=== PATIENT | male | born 1995 | race Caucasian/White ===

== ENCOUNTER 2017-11-28 13:28 | Emergency (ER) | payer OTHER ==
[2017-11-28 13:36] VITALS: RESP 18
[2017-11-28] MEDS ORDERED: ONDANSETRON 4 MG/2 ML VIAL ONE (13:47)
[2017-11-28] MEDS ORDERED: ONDANSETRON 4 MG/2 ML VIAL IVP ONE (13:49)
[2017-11-28] MEDS ORDERED: NS 1,000 ML IV ONE ×2 (13:49)
--- NOTE | 2017-11-28 13:51 | EDPHY ---
H & P Time Seen by Provider: 11/28/17 13:36 HPI/ROS: CHIEF COMPLAINT: Nausea and vomiting HISTORY OF PRESENT ILLNESS: For 5 drinks last night, no other recent illnesses except for a bit of a nonproductive cough for 3 days. At 8:00 a.m. And multiple episodes of nausea and vomiting associated with some mild epigastric discomfort. No diarrhea, no hematemesis or coffee-ground emesis, abdominal symptoms are actually better now. Worse with any oral intake. REVIEW OF SYSTEMS: Eye: no change in vision ENT: Mild sore throat Cardiac: no chest pain or syncope Pulmonary: Not short of breath Abdomen: HPI Musculoskeletal: no back pain Skin: no rash Neuro: no headache Constitutional: no fever : no urinary symptoms A comprehensive 10 point review of systems is otherwise negative aside from elements mentioned in the history of present illness. PAST MEDICAL HISTORY: Hernia repair otherwise negative Social history: Alcohol last night General Appearance: Alert and conversant, cooperative. Eyes: No scleral icterus. ENT, Mouth: Slightly dry mucous membranes Respiratory: Normal respiratory effort, breath sounds equal, lungs are clear to auscultation. Cardiovascular: Regular rate and rhythm. Gastrointestinal: Abdomen is soft and non tender. No epigastric or right upper quadrant tenderness, negative Cox's. Neurological: Alert, face symmetric, normal motor and sensory in extremities. Skin: Warm and dry, no rashes. Musculoskeletal: No peripheral edema. Psychiatric: Not agitated. Emergency Department course/MDM: Presents with vomiting, mild dehydration Does not have evidence of surgical exam, low suspicion for pancreatitis or hepatitis. Normal saline 2 L IV and Zofran 4 mg IV. 1449: Still has some epigastric pain, LFTs and lipase ordered. 1519: Labs discussed, feeling better, stable for discharge. Smoking Status: Current some day smoker Constitutional: Initial Vital Signs Temperature (C) 36.8 C 11/28/17 13:34 Heart Rate 92 11/28/17 13:34 Respiratory Rate 18 11/28/17 13:34 Blood Pressure 119/79 11/28/17 13:34 O2 Sat (%) 96 11/28/17 13:34 O2 Delivery Mode Room Air Allergies/Adverse Reactions: No Known Allergies Allergy (Verified 11/28/17 13:33) Home Medications: Medication Instructions Recorded NK [No Known Home Meds] 11/28/17 Medical Decision Making - Data Points Laboratory Results: Laboratory Results 11/28/17 13:45 11/28/17 13:45 11/28/17 11/28/17 13:45 13:45 WBC 14.01 10^3/uL H 10^3/uL (3.80-9.50) RBC 6.04 10^6/uL 10^6/uL (4.40-6.38) Hgb 17.9 g/dL H g/dL (13.7-17.5) Hct 51.9 % H % (40.0-51.0) MCV 85.9 fL fL (81.5-99.8) MCH 29.6 pg pg (27.9-34.1) MCHC 34.5 g/dL g/dL (32.4-36.7) RDW 13.1 % % (11.5-15.2) Plt Count 205 10^3/uL 10^3/uL (150-400) MPV 10.3 fL fL (8.7-11.7) Neut % (Auto) 91.8 % H % (39.3-74.2) Lymph % (Auto) 2.6 % L % (15.0-45.0) [place] % (Auto) 4.9 % % (4.5-13.0) Eos % (Auto) 0.2 % L % (0.6-7.6) Baso % (Auto) 0.1 % L % (0.3-1.7) Nucleat RBC Rel Count 0.0 % % (0.0-0.2) Absolute Neuts (auto) 12.85 10^3/uL H 10^3/uL (1.70-6.50) Absolute Lymphs (auto) 0.36 10^3/uL L 10^3/uL (1.00-3.00) Absolute Monos (auto) 0.69 10^3/uL 10^3/uL (0.30-0.80) Absolute Eos (auto) 0.03 10^3/uL 10^3/uL (0.03-0.40) Absolute Basos (auto) 0.02 10^3/uL 10^3/uL (0.02-0.10) Absolute Nucleated RBC 0.00 10^3/uL 10^3/uL (0-0.01) Immature Gran % 0.4 % % (0.0-1.1) Immature Gran # 0.06 10^3/uL 10^3/uL (0.00-0.10) Sodium 144 mEq/L mEq/L (135-145) Potassium 4.4 mEq/L mEq/L (3.5-5.2) Chloride 105 mEq/L mEq/L (97-110) Carbon Dioxide 24 mEq/l mEq/l (22-31) Anion Gap 15 mEq/L mEq/L (8-16) BUN 15 mg/dL mg/dL (7-23) Creatinine 0.8 mg/dL mg/dL (0.7-1.3) Estimated GFR > 60 Glucose 106 mg/dL H mg/dL (70-100) Calcium 9.7 mg/dL mg/dL (8.5-10.4) Total Bilirubin 1.2 mg/dL mg/dL (0.1-1.4) Conjugated Bilirubin 0.5 mg/dL mg/dL (0.0-0.5) Unconjugated Bilirubin 0.7 mg/dL mg/dL (0.0-1.1) AST 33 IU/L IU/L (17-59) ALT 42 IU/L IU/L (21-72) Alkaline Phosphatase 75 IU/L IU/L (38-126) Total Protein 8.0 g/dL g/dL (6.3-8.2) Albumin 4.8 g/dL g/dL (3.5-5.0) Lipase 52 IU/L IU/L (23-300) Medications Given: Discontinued Medications Sodium Chloride (Ns) 1,000 mls @ 0 mls/hr IV ONCE ONE PRN Reason: Wide Open Stop: 11/28/17 13:50 Last Admin: 11/28/17 13:59 Dose: 1,000 mls Sodium Chloride (Ns) 1,000 mls @ 0 mls/hr IV EDNOW ONE; Wide Open PRN Reason: Protocol Stop: 11/28/17 13:50 Last Admin: 11/28/17 14:32 Dose: 1,000 mls Ondansetron HCl (Zofran) 4 mg IVP EDNOW ONE Stop: 11/28/17 13:50 Last Admin: 11/28/17 13:59 Dose: 4 mg Ondansetron HCl (Zofran Odt) 4 mg PO EDNOW ONE Stop: 11/28/17 14:31 Last Admin: 11/28/17 14:32 Dose: 4 mg Departure - Departure Disposition: Home, Routine, Self-Care Clinical Impression: Nausea & vomiting Qualifiers: Vomiting type: unspecified Vomiting Intractability: non-intractable Qualified Code(s): R11.2 - Nausea with vomiting, unspecified Condition: Good Instructions: Acute Nausea and Vomiting (ED) Referrals: Alex Castellanos MD [Primary Care Provider] - As per Instructions
[2017-11-28 14:30] VITALS: BP 112/55; PULSE 100; O2SAT 97
[2017-11-28] MEDS ORDERED: ONDANSETRON DISINTEGRATING 4 MG TAB PO ONE (14:30)
[2017-11-28] MEDS ORDERED: ONDANSETRON DISINTEGRATING 4 MG TAB ONE (14:31)
[2017-11-28 14:53] LABS: PLATELET COUNT 205 10^3/uL (150-400)
[2017-11-28 15:27] VITALS: TEMP 98.6
== END 2017-11-28 15:31 | disposition home or self-care (01) ==
DX: R11.2 Nausea with vomiting, unspecified (principal); F17.200 Nicotine dependence, unspecified, uncomplicated; E86.9 Volume depletion, unspecified
CPT/HCPCS: 96374; J2405